=== PATIENT | male | born 1980 | race Caucasian/White ===

== ENCOUNTER 2018-09-06 19:18 | Inpatient (IN) | payer OTHER ==
[~2018-09-06] VITALS: Ht 180.3 cm; Wt 103.1 kg
[2018-09-06 20:27] LABS: BASO % 0.5 % (0.0-1.0); EOS # 0.1 10^3/uL (0.0-0.50); EOS % 1.2 % (0.0-3.0); HEMATOCRIT 40.3 % (42.0-52.0); HEMOGLOBIN 13.5 g/dl (13.5-17.5); LYMPH # 1.6 10^3/uL (1.5-4.5); LYMPH % 20.1 % (24.0-44.0); MEAN CORPUSCULAR HEMOGLOBIN 28.7 pg (27.0-33.0); MEAN CORPUSCULAR HGB CONC 33.5 g/dl (32.0-36.5); MEAN CORPUSCULAR VOLUME 85.7 fl (80.0-96.0); MONO # 0.7 10^3/uL (0.0-0.8); MONO % 8.8 % (0.0-5.0); NEUTROPHILS # 5.4 10^3/uL (1.8-7.7); PLATELET COUNT, AUTOMATED 204 10^3/uL (150-450); WHITE BLOOD COUNT 7.8 10^3/uL (4.0-10.0)
[2018-09-06] MEDS ORDERED: MORPHINE 4 MG/ML 1ML VIAL/SYRINGE (J2270) IV ONE (20:30)
[2018-09-06] MEDS ORDERED: ONDANSETRON 4MG/2ML VIAL (J2405) IV ONE (20:30)
[2018-09-06 20:38] LABS: INR 1.85; PROTHROMBIN TIME 21.7 SECONDS (12.1-14.4)
[2018-09-06 20:39] LABS: ALBUMIN 3.4 GM/DL (3.2-5.2); ALT/SGPT 53 U/L (12-78); BILIRUBIN,DIRECT 0.1 MG/DL (0.0-0.2); BILIRUBIN,TOTAL 0.6 MG/DL (0.2-1.0); BLOOD UREA NITROGEN 17 MG/DL (7-18); CALCIUM LEVEL 8.4 MG/DL (8.5-10.1); CARBON DIOXIDE LEVEL 27 MEQ/L (21-32); CHLORIDE LEVEL 107 MEQ/L (98-107); CPK CREATINE PHOSPHOKINASE 202 U/L (39-308); CREATININE FOR GFR 0.86 MG/DL (0.70-1.30); GLOMERULAR FILTRATION RATE > 60.0 (>60); GLUCOSE, FASTING 94 MG/DL (70-100); LIPASE 126 U/L (73-393); MB/CK RELATIVE INDEX 0.79 (< OR =4); PARTIAL THROMBOPLASTIN TIME 35.7 SECONDS (25.4-37.6); POTASSIUM SERUM 4.4 MEQ/L (3.5-5.1); SODIUM LEVEL 140 MEQ/L (136-145); TOTAL PROTEIN 6.9 GM/DL (6.4-8.2); TROPONIN I < 0.02 NG/ML (< 0.10)
[2018-09-06] MEDS ORDERED: ISOVUE-370 76% 100ML VIAL (Q9967) As Ordered ONE (21:18)
--- NOTE | 2018-09-06 22:27 | REPVR ---
EXAM: US Duplex Left Upper Extremity Veins, Limited EXAM DATE/TIME: 09/06/2018 9:40 PM CLINICAL HISTORY: 38 years old, male; Pain; Arn, upper; Left; Additional info: RO dvt TECHNIQUE: Imaging protocol: Real-time Duplex ultrasound of the Left Upper Extremity with 2-D sauceda scale, color Doppler flow and spectral waveform analysis. Limited exam focused on the left upper extremity veins. COMPARISON: No relevant prior studies available. FINDINGS: Left deep veins: Internal jugular, subclavian, axillary and brachial veins patent without thrombus. Normal compressibility, augmentation response and/or Doppler waveforms. Left superficial veins: Visualized cephalic and basilic veins patent without thrombus. Soft tissues: Unremarkable. IMPRESSION: No sonographic evidence of deep vein thrombosis. Electronically signed by: Frank Hurd On 09/06/2018 22:27:02 PM
[2018-09-06] MEDS ORDERED: ENOXAPARIN 100MG/1ML SYRINGE (J1650) SC ONE (22:30)
--- NOTE | 2018-09-06 22:34 | REPVR ---
EXAM: CTA Left Upper Extremity With Contrast EXAM DATE/TIME: 09/06/2018 9:58 PM CLINICAL HISTORY: 38 years old, male; Condition or disease; Other: HX of clots; Prior surgery; Additional info: Left arm, assess stent integrity - HX of clot TECHNIQUE: Imaging protocol: Axial CTA of the Left upper extremity with intravenous contrast material, including non-contrast images if performed. Coronal and sagittal reformatted images were created and reviewed. 3D rendering: MIP reconstructed images were created and reviewed. Radiation optimization: All CT scans at this facility use at least one of these dose optimization techniques: automated exposure control; mA and/or kV adjustment per patient size (includes targeted exams where dose is matched to clinical indication); or iterative reconstruction. Contrast material: ISOVUE 370; Contrast volume: 100 ml; Contrast route: IV; COMPARISON: No relevant prior studies available. FINDINGS: Left subclavian artery: No acute findings. No occlusion or significant stenosis. Left axillary artery: No acute findings. No occlusion or significant stenosis. Left brachial artery: No acute findings. No occlusion or significant stenosis. Left Radial artery: Grossly patent. No definite occlusion or significant stenosis. Left ulnar artery: Grossly patent. No definite occlusion or significant stenosis. Upper Extremity Veins: Suboptimal evaluation of the left subclavian vein stent due to the phase of contrast-enhancement. Subcutaneous varices about the shoulder and arm. Bones/joints: No acute fracture. No dislocation. Soft tissues: Grossly unremarkable. No fluid collection or soft tissue mass. IMPRESSION: 1. Patent left upper extremity arterial system. 2. Suboptimal evaluation of the left subclavian vein stent due to the phase of contrast-enhancement. 3. Additional findings, as above. Electronically signed by: Frank Hurd On 09/06/2018 22:34:25 PM
[2018-09-06] MEDS ORDERED: WARF4TAB51 PO (22:45)
[2018-09-06] MEDS ORDERED: WARF-22 PO (22:45)
--- NOTE | 2018-09-06 23:29 | ECGEPIP ---
Stationary ECG Study [facility] - ED Test Date: 2018-09-06 Pat Name: BENJI KOO Department: Room: - Gender: M [employer]: : 1980 Requested By: Pako Howard Order Number: [id number] Reading MD: Pako Mejia Measurements Intervals Freeman Rate: 52 P: 7 NV: 179 QRS: -63 QRSD: 146 T: -8 QT: 423 QTc: 394 Interpretive Statements SINUS BRADYCARDIA RIGHT BUNDLE BRANCH BLOCK LEFT ANTERIOR FASCICULAR BLOCK NO PRIORS FOR COMPARISON Electronically Signed On 09-06-2018 23:28:58 EDT by Pako Mejia
[2018-09-06] MEDS ORDERED: MOM 30ML SUSPENSION UDC PO PRN (23:30)
[2018-09-06] MEDS ORDERED: ACETAMINOPHEN TAB 650MG DOSE (2X325MG) PO PRN (23:30)
[2018-09-07 00:40] VITALS: BP 139/92
[2018-09-07] MEDS: traMADol 50 MG TAB PO PRN ×2 (00:56→18:46)
[2018-09-07 05:41] VITALS: BP 109/70
--- NOTE | 2018-09-07 06:22 | HPEPDOC ---
General Date of Admission Sep 06, 2018 at 22:39 Attending Physician: MIKE GILBERT MD Chief Complaint The patient is a 38-year-old male admitted with a reason for visit of Left Arm Pain. History of Present Illness 38-year-old male from local correctional facility is brought in for left arm and chest pain that radiates to his neck and back. He states it started last night around 11 PM while watching TV. He states this feels similar to his previous episodes of when he had clots in his left arm that initially started in 2010 after he sustained an injury from a fall that led to him having thoracic outlet syndrome after a rib was surgically removed. He states he has had a stent in that arm since 2012 that has clotted up multiple times. He admits to a history of multiple blood clots in the lower legs. Denies any other symptoms such as shortness of breath, fever, chills, dizziness. Of note, his Coumadin has been uptitrated over the past years, currently at 12 MG daily, which he does say he complies with, however his INR on admission is 1.85. On imaging, Doppler was negative for any clot, however there is questionable thrombus with suboptimal visualization of the stent on CTA. The ER spoke with vascular surgeon Dr. Gil, who would like the patient admitted for assessment in the morning. He is otherwise stable, and has been started on full dose Lovenox as per vascular surgery. Home Medications Scheduled Warfarin Sodium (Warfarin Sodium) 2 Mg Tablet, 2 MG PO QPM, (Reported) TAKES WITH 10MG FOR 12MG TOTAL, TAKES AT DINNERTIME Warfarin Sodium (Warfarin Sodium) 10 Mg Tablet, 10 MG PO QPM, (Reported) TAKES WITH 2MG FOR 12MG TOTAL, TAKES AT DINNERTIME Allergies Coded Allergies: No Known Allergies (Unverified , 09/06/18) Past Medical History Medical History Thoracic outlet syndrome Recurrent VTE, S/P left subclavian stent on chronic anticoagulation ?Hx of cardiac pauses s/p PPM Surgical History Left rib removal s/p fall ' Left subclavian stent ' ?PPM placed Family History Patient doesn't recall Social History Denies any illicit substances. Experimented with tobacco, however does not currently smoke or drink. Is incarcerated. Review of Systems Other systems Constitutional: Denies fever, chills, wt loss Skin: Denies any new rashes or lesions Pulmonary: Denies dyspnea, cough, wheezing Cardiac: Denies chest pain, palpitations, edema, lightheadedness GI: Denies nausea, vomiting, abdominal pain Endocrine: Denies heat or cold intolerance MSK: Admits to left arm, chest, neck pain associated with left arm swelling. Denies other aches/pains Neurologic: Denies weakness or numbness/tingling Physical Examination Other physical findings General exam: Alert and cooperative, A&O 3, NAD Eye exam: PERRLA, EOMI ENT: Atraumatic, normocephalic, mucus membranes moist Neck: Supple, no JVD Cardiac: RRR, normal S1 & S2, no murmurs Respiratory: CTAB, good air exchange, no wheezing, rhonchi, or rales Abdomen: soft, nontender, nondistended Extremity: Left arm visibly swollen compared to right, ROM & strength intact fully, no LE edema or calf tenderness. Warm with good capillary refill Skin: Left upper arm warm and tender to palpation at site of swelling. Otherwise: pink, warm, dry, no visible rash or lesions Neuro: no focal deficit Vital Signs Vital Signs Date Time Temp Pulse Resp B/P (MAP) Pulse Ox O2 Delivery O2 Flow Rate FiO2 09/07/18 05:41 97.2 66 16 109/70 (83) 97 09/06/18 20:34 2.0 09/06/18 19:37 Room Air Laboratory Data Labs 24H Laboratory Tests 2 09/06/18 19:44: Immature Granulocyte % (Auto) 0.4, White Blood Count 7.8, Red Blood Count 4.70, Hemoglobin 13.5, Hematocrit 40.3L, Mean Corpuscular Volume 85.7, Mean Corpuscular Hemoglobin 28.7, Mean Corpuscular Hemoglobin Concent 33.5, Red Cell Distribution Width 13.3, Platelet Count 204, Neutrophils (%) (Auto) 69.0H, Lymphocytes (%) (Auto) 20.1L, Monocytes (%) (Auto) 8.8H, Eosinophils (%) (Auto) 1.2, Basophils (%) (Auto) 0.5, Neutrophils # (Auto) 5.4, Lymphocytes # (Auto) 1.6, Monocytes # (Auto) 0.7, Eosinophils # (Auto) 0.1, Basophils # (Auto) 0.0, Nucleated Red Blood Cells % (auto) 0.0, Prothrombin Time 21.7H, Prothromb Time International Ratio 1.85, Activated Partial Thromboplast Time 35.7, Anion Gap 6L, Glomerular Filtration Rate > 60.0, Calcium Level 8.4L, Aspartate Amino Transf (AST/SGOT) 25, Alanine Aminotransferase (ALT/SGPT) 53, Alkaline Phosphatase 82, Total Bilirubin 0.6, Direct Bilirubin 0.1, Total Creatine Kinase 202, Creatine Kinase MB 2.0, Creatine Kinase MB Relative Index 0.79, Troponin I < 0.02, Total Protein 6.9, Albumin 3.4, Albumin/Globulin Ratio 0.97L, Lipase 126, Thyroid Stimulating Hormone (TSH) 0.860, Free Thyroxine 1.20 CBC/BMP Laboratory Tests 09/06/18 19:44 Red Blood Count 4.70, Mean Corpuscular Volume 85.7, Mean Corpuscular Hemoglobin 28.7, Mean Corpuscular Hemoglobin Concent 33.5, Red Cell Distribution Width 13.3, Neutrophils (%) (Auto) 69.0 H, Lymphocytes (%) (Auto) 20.1 L, Monocytes (%) (Auto) 8.8 H, Eosinophils (%) (Auto) 1.2, Basophils (%) (Auto) 0.5, Neutrophils # (Auto) 5.4, Lymphocytes # (Auto) 1.6, Monocytes # (Auto) 0.7, Eosi nophils # (Auto) 0.1, Basophils # (Auto) 0.0 Assessment/Plan 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 Left arm visibly swollen and tender compared to right Pt started on therapeutic Lovenox in lieu of home dose Warfarin per [facility] Vascular surgeon Dr. Gil consulted and will assess patient in a.m., possibly take to OR History of recurrent thrombus formation Exact source is unclear. He overall is a poor historian and does not follow with PCP Despite high dose Coumadin of 12mg, INR suboptimal at 1.85 on admission. May require readjustment of AC once medically improved Does not endorse any constitutional symptoms, malignancy less likely Unsure of family hx, may have genetic component May benefit from a hypercoagulable workup if not already done Atypical Chest Pain likely 2/2 possible occlusion/thrombus of stent as aforementioned cardiac markers negative, EKG unremarkable will trend additional cardiac marker set. Unlikely to be cardiogenic Hx of cardiac pauses S/P PPM that functions on prn basis per pt, although no pacer spikes on EKG or PM visible on CXR hemodynamically stable will require further investigation DVT ppx: therapeutic lovenox DISPO: Will admit to hospitalist service to be seen by [facility] surgery in a.m. Possible OR. Plan / VTE VTE Prophylaxis Ordered?: Yes GME ATTESTATION GME ATTESTATION My faculty preceptor for this patient encounter was physically present during the encounter and was fully available. All aspects of the patient interview, examination, medical decision making process, and medical care plan development were reviewed and approved by the faculty preceptor. The faculty preceptor is aware and concurs with the plan as stated in the body of this note and will a ttest to such by his/her cosignature. ATTENDING NOTE I have independently examined this patient and reviewed the H&P. I have discussed in detail with the resident the findings and treatment plan as documented in the resident's note and I agree to that. 38 y/o M with h/o subclavian steal syndrome s/p stent placement, h/o left upper extremity DVT c/o left arm pain and swelling; found to have questionable thrombus with suboptimal visualization of the stent on CTA. Impression- left arm pain and swelling secondary to suspected thrombus. Plan will continue PO coumadin, sq lovenox bridging, will f/u INR pain management, will f/u with vascular surgeon JUNO Hong DO Sep 07, 2018 06:22 MIKE GILBERT MD Sep 08, 2018 00:07
[2018-09-07 06:53] LABS: HEMATOCRIT 41.6 % (42.0-52.0); HEMOGLOBIN 13.8 g/dl (13.5-17.5); MEAN CORPUSCULAR HEMOGLOBIN 28.4 pg (27.0-33.0); MEAN CORPUSCULAR HGB CONC 33.2 g/dl (32.0-36.5); MEAN CORPUSCULAR VOLUME 85.6 fl (80.0-96.0); PLATELET COUNT, AUTOMATED 183 10^3/uL (150-450); RED BLOOD COUNT 4.86 10^6/uL (4.30-6.10); WHITE BLOOD COUNT 7.3 10^3/uL (4.0-10.0)
[2018-09-07 07:16] LABS: BLOOD UREA NITROGEN 15 MG/DL (7-18); CALCIUM LEVEL 8.2 MG/DL (8.5-10.1); CARBON DIOXIDE LEVEL 26 MEQ/L (21-32); CHLORIDE LEVEL 108 MEQ/L (98-107); CPK CREATINE PHOSPHOKINASE 139 U/L (39-308); CREATININE FOR GFR 0.88 MG/DL (0.70-1.30); GLOMERULAR FILTRATION RATE > 60.0 (>60); GLUCOSE, FASTING 87 MG/DL (70-100); MB/CK RELATIVE INDEX 0.86 (< OR =4); POTASSIUM SERUM 3.7 MEQ/L (3.5-5.1); SODIUM LEVEL 139 MEQ/L (136-145); TROPONIN I < 0.02 NG/ML (< 0.10)
[2018-09-07] MEDS: ENOXAPARIN 100MG/1ML SYRINGE (J1650) SC SCH ×2 (08:50→20:56)
--- NOTE | 2018-09-07 09:23 | REP ---
Portable chest x-ray: Single view: History: Chest pain. No comparison study. Findings: EKG monitoring electrodes overlie the chest. There is a disc shaped metallic opacity superimposed on the heart which could be a aortic valve replacement. There is a vascular stent in the region of the subclavian artery or vein on the left. The lungs are well inflated and clear. Pleural angles are sharp. Heart size is normal. Impression: Metallic density superimposed on the heart may be a valve replacement or other intracardiac device. Vascular stent in the left subclavian region. Otherwise no acute disease. Electronically Signed by Spencer Oswald MD 09/07/2018 09:25 A
--- NOTE | 2018-09-07 10:46 | CR.PDOC ---
General Date of Consultation: Sep 07, 2018 Consultation CONSULTATION REPORT FOR: Dr Carr REASON FOR CONSULTATION: LUE edema Vascular Surgery: Dr. Gil HPI: 38-[facility] brought to ED for left arm and chest pain that radiating to his neck and back. He states it started 2 days ago. He reported this felt similar to his previous episodes of when he had clots in his left arm. He reports he initially had UE clots in 2010 after he sustained an injury from a fall that led to him having thoracic outlet syndrome after a rib was surgically removed. He states he has had a stent in LUE since 2012, reports it has clotted up multiple times. He reports history of multiple blood clots in the LEs. Of note, Pt states his Coumadin has been uptitrated over the past years, currently at 12 MG daily. States his INR 8 days ago was 1.2, on admission was 1.85. On imaging, Doppler LUE was negative for any clot. CTA LUE with questionable thrombus with suboptimal visualization of the stent. Dr. Gil, vascular surgery is consulted for further evaluation. Full dose Lovenox initiated. Denies any fevers, chills, weakness, fatigue, Headache, Chest Pain, Shortness of breath, cough, palpitations, abdominal pain, N/V/D or changes in bowel or bladder habits. Medical History Thoracic outlet syndrome Recurrent VTE, S/P left subclavian stent on chronic Coumadin anticoagulation Hx of cardiac pauses s/p PPM Surgical History Left rib removal s/p fall ' Left subclavian stent '13 ?PPM placed SOCHX: Resides in: [facility]. From [facility] Marital Status: single Kids: 3 Tobacco use: denies ETOH: denies Illicit Drugs: Denies FAMHX: Mother: Alive, well Father: Alive, well Siblings: 1 brother Alive, well Children: 3 Alive, well Denies h/o clotting disorders ROS: As noted in HPI, otherwise 11pt ROS of systems reviewed and unremarkable. PE: GEN: 38yoM, appears stated age. No acute distress. Alert and oriented x 3. HEENT: Normocephalic, atraumatic. Sclera are nonicteric. Conjunctiva without injection. No facial asymmetry. Moist mucous membranes. CHEST: Regular rate and rhythm, +S1, +S2 LUNGS: Clear to auscultation bilaterally. No wheezes, rales, or rhonchi. Breathing appears symmetric and easy. ABD: Round, soft, non-tender, non-distended. +Bowel sounds throughout. No rebound or guarding. EXT: Pulses 2+ bilaterally ulnar and radial. Good cap refill. Lt hand warm. LUE with edema and TTP in upper arm. No lower extremity edema or TTP appreciated. SKIN: [place], dry, warm. No rashes. NEURO: Alert and oriented x 3. No focal deficits appreciated. CXR Metallic density superimposed on the heart may be a valve replacement or other intracardiac device. Vascular stent in the left subclavian region. Otherwise no acute disease. Electronically Signed by Spencer Oswald MD 09/07/2018 09:25 A EKG SINUS BRADYCARDIA RIGHT BUNDLE BRANCH BLOCK LEFT ANTERIOR FASCICULAR BLOCK NO PRIORS FOR COMPARISON Electronically Signed On 09-06-2018 23:28:58 EDT by Pako TRUONG U/S Left deep veins: Internal jugular, subclavian, axillary and brachial veins patent without thrombus. Normal compressibility, augmentation response and/or Doppler waveforms. Left superficial veins: Visualized cephalic and basilic veins patent without thrombus. Soft tissues: Unremarkable. IMPRESSION: No sonographic evidence of deep vein thrombosis. Electronically signed by: Frank Hurd On 09/06/2018 22:27:02 PM LUE CTA Upper Extremity Veins: Suboptimal evaluation of the left subclavian vein stent due to the phase of contrast-enhancement. Subcutaneous varices about the shoulder and arm. Bones/joints: No acute fracture. No dislocation. Soft tissues: Grossly unremarkable. No fluid collection or soft tissue mass. IMPRESSION: 1. Patent left upper extremity arterial system. 2. Suboptimal evaluation of the left subclavian vein stent due to the phase of contrast-enhancement. 3. Additional findings, as above. Electronically signed by: Frank Hurd On 09/06/2018 22:34:25 PM A&P: 38-year-old male from local correctional facility is brought to ED for left arm and chest pain that radiating to his neck and back. He states it started 2 days ago. He reported this felt similar to his previous episodes of when he had clots in his left arm. He reports he initially had UE clots in 2010 after he sustained an injury from a fall that led to him having thoracic outlet syndrome after a rib was surgically removed. He states he has had a stent in LUE since 2012, reports it has clotted up multiple times. He reports history of multiple blood clots in the LEs. Of note, Pt states his Coumadin has been uptitrated over the past years, curre ntly at 12 MG daily, which he does say he complies with. States his INR 8 days ago was 1.2, on admission was 1.85. On imaging, Doppler LUE was negative for any clot. CTA LUE with questionable thrombus with suboptimal visualization of the stent. Dr. Gil, vascular surgery is consulted for further evaluation. Full dose Lovenox initiated. 1. LUE pain/edema. Concern for possible Left subclavian stent thrombosis. CTA on admission with suboptimal evaluation of the left subclavian stent. Pt reports h/o recurrent thrombus formation. Patient states he has had multiple clots in his legs and arms since his initial injury in 2010. Pt started on therapeutic Lovenox 100mg SQ Q12hr. INR 1.85 on admission despite Coumadin 12 mg daily. Pt is NPO. Plan is for LUE venogram as per Dr Gil. 2. History of recurrent thrombus formation Despite Coumadin dose of 12mg, INR suboptimal at 1.85 on admission. May require re adjustment of AC once medically improved. Pt denies family hx of clotting d/o. Will request hypercoagulable w/u, unclear if already completed previously. 3. Atypical Chest Pain EKG with no acute changes. Serial CIP/Trop neg. 4. Hx of cardiac pauses H/O PPM as per pt. CXR indicates metallic density superimposed on the heart may be a valve replacement or other intracardiac device. DVT prophylaxis. Pt is on Lovenox. Vital Signs/I&O Vital Signs Date Time Temp Pulse Resp B/P (MAP) Pulse Ox O2 Delivery O2 Flow Rate FiO2 09/07/18 05:41 97.2 66 16 109/70 (83) 97 09/06/18 20:34 2.0 09/06/18 19:37 Room Air Laboratory Data Labs 24H Laboratory Tests 2 09/06/18 19:44: Immature Granulocyte % (Auto) 0.4, White Blood Count 7.8, Red Blood Count 4.70, Hemoglobin 13.5, Hematocrit 40.3L, Mean Corpuscular Volume 85.7, Mean Corpuscular Hemoglobin 28.7, Mean Corpuscular Hemoglobin Concent 33.5, Red Cell Distribution Width 13.3, Platelet Count 204, Neutrophils (%) (Auto) 69.0H, Lymphocytes (%) (Auto) 20.1L, Monocytes (%) (Auto) 8.8H, Eosinophils (%) (Auto) 1.2, Basophils (%) (Auto) 0.5, Neutrophils # (Auto) 5.4, Lymphocytes # (Auto) 1.6, Monocytes # (Auto) 0.7, Eosinophils # (Auto) 0.1, Basophils # (Auto) 0.0, Nucleated Red Blood Cells % (auto) 0.0, Prothrombin Time 21.7H, Prothromb Time International Ratio 1.85, Activated Partial Thromboplast Time 35.7, Anion Gap 6L, Glomerular Filtration Rate > 60.0, Calcium Level 8.4L, Aspartate Amino Transf (AST/SGOT) 25, Alanine Aminotransferase (ALT/SGPT) 53, Alkaline Phosphatase 82, Total Bilirubin 0.6, Direct Bilirubin 0.1, Total Creatine Kinase 202, Creatine Kinase MB 2.0, Creatine Kinase MB Relative Index 0.79, Troponin I < 0.02, Total Protein 6.9, Albumin 3.4, Albumin/Globulin Ratio 0.97L, Lipase 126, Thyroid Stimulating Hormone (TSH) 0.860, Free Thyroxine 1.20 09/07/18 06:25: Nucleated Red Blood Cells % (auto) 0.0, Anion Gap 5L, Glomerular Filtration Rate > 60.0, Calcium Level 8.2L, Total Creatine Kinase 139, Creatine Kinase MB 1.0, Creatine Kinase MB Relative Index 0.86, Troponin I < 0.02, Blood Urea Nitrogen 15, Creatinine 0.88, Sodium Level 139, Potassium Level 3.7, Chloride Level 108H, Carbon Dioxide Level 26 CBC/BMP Laboratory Tests 09/06/18 19:44 Red Blood Count 4.70, Mean Corpuscular Volume 85.7, Mean Corpuscular Hemoglobin 28.7, Mean Corpuscular Hemoglobin Concent 33.5, Red Cell Distribution Width 13.3, Neutrophils (%) (Auto) 69.0 H, Lymphocytes (%) (Auto) 20.1 L, Monocytes (%) (Auto) 8.8 H, Eosinophils (%) (Auto) 1.2, Basophils (%) (Auto) 0.5, Neutrophils # (Auto) 5.4, Lymphocytes # (Auto) 1.6, Monocytes # (Auto) 0.7, Eosinophils # (Auto) 0.1, Basophils # (Auto) 0.0 09/07/18 06:25 Red Blood Count 4.86, Mean Corpuscular Volume 85.6, Mean Corpuscular Hemoglobin 28.4, Mean Corpuscular Hemoglobin Concent 33.2, Red Cell Distribution Width 13.2, Calcium Level 8.2 L, Total Creatine Kinase 139 Allergies Coded Allergies: No Known Allergies (Unverified , 09/06/18) Home Medications Scheduled Warfarin Sodium (Warfarin Sodium) 2 Mg Tablet, 2 MG PO QPM, (Reported) TAKES WITH 10MG FOR 12MG TOTAL, TAKES AT DINNERTIME Warfarin Sodium (Warfarin Sodium) 10 Mg Tablet, 10 MG PO QPM, (Reported) TAKES WITH 2MG FOR 12MG TOTAL, TAKES AT DINNERTIME Esther Ojeda Sep 07, 2018 10:46
[2018-09-07] MEDS: KETOROLAC 30 MG/ML VIAL (J1885) IV PRN ×2 (10:50→20:55)
--- NOTE | 2018-09-07 13:56 | IPNPDOC ---
Text Note Date of Service The patient was seen on 09/07/18. NOTE OBJECTIVE: Complains of left chest wall swelling and left upper extremity pain and swelling. No fever or chills, no SOB or cough. patient has visits to multiple hospitals including [facility], [facility] hospitals in [place] . Will request records from [facility] where he had the stent originally put in and also a ? pacemaker put it. SUBJECTIVE VITALS: As below. General exam: Alert and cooperative, A&O 3, NAD Eye exam: NADIA URENA ENT: Atraumatic, normocephalic, mucus membranes moist, anicteric eyes. Neck: Supple, no JVD Cardiac: RRR, normal S1 & S2, no murmurs, rub or gallop Respiratory: CTAB, good air exchange, no wheezing, ronchi, or rales Abdomen: soft, nontender, nondistended Extremity: Left arm slightly swollen compared to right, ROM & strength intact fully, no Lower Extremity edema or calf tenderness. Warm with good capillary refill Neuro: no focal deficit Labs and Radiology: reviewed. ASSESSMENT and PLAN: 38-year-old male from local correctional facility is brought to ED for left arm and chest pain that was radiating to his neck and back. He states it started 2 days ago. He reported this felt similar to his previous episodes of when he had clots in his left arm. He reports he initially had UE clots in 2010 after he sustained an injury from a fall that led him to be having thoracic outlet syndrome for which a rib was surgically removed in 2012. HE also had a subclaviun vein stent placed in 2012 and a pacemaker placed in 2015. He states that the stent has clotted up multiple times. A report from [facility] from Mar 2018 showed that the subclavian vein stent was clotted .He reports history of multiple blood clots in the lower legs. He was admitted for possible clotting of left subclavian vein stent. Possible Left subclavian vein stent thrombosis. CTA on admission concerning for thrombus occlusion of stent. Vascular surgery to evaluate possibl e LUE angiogram today. 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 Hx of cardiac pauses H/O PPM as per pt. CXR indicates metallic density superimposed on the heart may be a valve replacement or other intracardiac device. will request records from [facility] where he got it done. A-FIB/CHADSVASC A-FIB History Current/History of A-Fib/PAF?: Yes Current Oral Anticoagulant The: Yes VS,Fishbone, I+O VS, Fishbone, I+O Laboratory Tests 09/06/18 19:44 Red Blood Count 4.70, Mean Corpuscular Volume 85.7, Mean Corpuscular Hemoglobin 28.7, Mean Corpuscular Hemoglobin Concent 33.5, Red Cell Distribution Width 13.3, Neutrophils (%) (Auto) 69.0 H, Lymphocytes (%) (Auto) 20.1 L, Monocytes (%) (Auto) 8.8 H, Eosinophils (%) (Auto) 1.2, Basophils (%) (Auto) 0.5, Neutrophils # (Auto) 5.4, Lymphocytes # (Auto) 1.6, Monocytes # (Auto) 0.7, Eosinophils # (Auto) 0.1, Basophils # (Auto) 0.0 09/07/18 06:25 Red Blood Count 4.86, Mean Corpuscular Volume 85.6, Mean Corpuscular Hemoglobin 28.4, Mean Corpuscular Hemoglobin Concent 33.2, Red Cell Distribution Width 13.2, Calcium Level 8.2 L, Total Creatine Kinase 139 Vital Signs Date Time Temp Pulse Resp B/P (MAP) Pulse Ox O2 Delivery O2 Flow Rate FiO2 09/07/18 05:41 97.2 66 16 109/70 (83) 97 09/06/18 20:34 2.0 09/06/18 19:37 Room Air KATERYNA LUCIANO MD Sep 07, 2018 11:26
[2018-09-07 14:00] VITALS: BP 123/77
[2018-09-07 14:14] LABS: ERYTHROCYTE SEDIMENTATION RATE 11 mm/hr (0-15)
[2018-09-07 15:25] LABS: C REACTIVE PROTEIN QUANTITATIV 0.77 MG/DL (0.00-0.30)
[2018-09-07] MEDS ORDERED: BUPIVACAINE HCL 0.5% 10 ML VIAL As Ordered ONE (15:47)
[2018-09-07] MEDS ORDERED: ISOVUE-300 61% 100ML VIAL (Q9967) As Ordered ONE (15:48)
[2018-09-07] MEDS ORDERED: LIDOCAINE 2% MDV 20 ML VIAL As Ordered ONE (15:48)
[2018-09-07 20:00] VITALS: BP 144/74
[2018-09-08 04:00] VITALS: BP 130/83
[2018-09-08 06:58] LABS: HEMATOCRIT 41.3 % (42.0-52.0); HEMOGLOBIN 13.9 g/dl (13.5-17.5); MEAN CORPUSCULAR HEMOGLOBIN 28.7 pg (27.0-33.0); MEAN CORPUSCULAR HGB CONC 33.7 g/dl (32.0-36.5); MEAN CORPUSCULAR VOLUME 85.2 fl (80.0-96.0); PLATELET COUNT, AUTOMATED 197 10^3/uL (150-450); RED BLOOD COUNT 4.85 10^6/uL (4.30-6.10); WHITE BLOOD COUNT 6.8 10^3/uL (4.0-10.0)
[2018-09-08 07:24] LABS: BLOOD UREA NITROGEN 23 MG/DL (7-18); CALCIUM LEVEL 8.3 MG/DL (8.5-10.1); CARBON DIOXIDE LEVEL 26 MEQ/L (21-32); CHLORIDE LEVEL 109 MEQ/L (98-107); GLOMERULAR FILTRATION RATE > 60.0 (>60); GLUCOSE, FASTING 91 MG/DL (70-100); SODIUM LEVEL 140 MEQ/L (136-145)
[2018-09-08] MEDS: traMADol 50 MG TAB PO PRN (08:37)
[2018-09-08] MEDS: ENOXAPARIN 100MG/1ML SYRINGE (J1650) SC SCH ×2 (08:37→20:12)
--- NOTE | 2018-09-08 10:02 | IPNPDOC ---
Date Seen The patient was seen on 09/08/18. Progress Note HPI: 38-year-old male from local correctional facility is brought to ED for left arm and chest pain that radiating to his neck and back. He states it started 2 days ago. He reported this felt similar to his previous episodes of when he had clots in his left arm. He reports he initially had UE clots in 2010 after he sustained an injury from a fall that led to him having thoracic outlet synd sebastián after a rib was surgically removed. He states he has had a stent in LUE since 2012, reports it has clotted up multiple times. He reports history of multiple blood clots in the LEs. Of note, Pt states his Coumadin has been uptitrated over the past years, currently at 12 MG daily. States his INR 8 days ago was 1.2, on admission was 1.85. On imaging, Doppler LUE was negative for any clot. CTA LUE with questionable thrombus with suboptimal visualization of the stent. Dr. Gil, vascular surgery is consulted for further evaluation. Full dose Lovenox initiated on admission. Denies any fevers, chills, weakness, fatigue, Headache, Chest Pain, Shortness of breath, cough, palpitations, abdominal pain, N/V/D or changes in bowel or bladder habits. Medical History Thoracic outlet syndrome Recurrent VTE, S/P left subclavian stent on chronic Coumadin anticoagulation Hx of cardiac pauses s/p PPM Surgical History Left rib removal s/p fall ' Left subclavian stent '13 ?PPM placed PE: GEN: 38yoM, appears stated age. No acute distress. Alert and oriented x 3. HEENT: Normocephalic, atraumatic. Sclera are nonicteric. Conjunctiva without injection. No facial asymmetry. Moist mucous membranes. CHEST: Regular rate and rhythm, +S1, +S2 LUNGS: Clear to auscultation bilaterally. No wheezes, rales, or rhonchi. Breathing appears symmetric and easy. ABD: Round, soft, non-tender, non-distended. +Bowel sounds throughout. No rebound or guarding. EXT: Pulses 2+ bilaterally ulnar and radial. Good cap refill. Lt hand warm. LUE with edema and TTP in upper arm. No lower extremity edema or TTP appreciated. SKIN: [place], dry, warm. No rashes. NEURO: Alert and oriented x 3. No focal deficits appreciated. CXR Metallic density superimposed on the heart may be a valve replacement or other intracardiac device. Vascular stent in the left subclavian region. Otherwise no acute disease. Electronically Signed by Spencer Oswald MD 09/07/2018 09:25 A EKG SINUS BRADYCARDIA RIGHT BUNDLE BRANCH BLOCK LEFT ANTERIOR FASCICULAR BLOCK NO PRIORS FOR COMPARISON Electronically Signed On 09-06-2018 23:28:58 EDT by Pako TRUONG U/S Left deep veins: Internal jugular, subclavian, axillary and brachial veins patent without thrombus. Normal compressibility, augmentation response and/or Doppler waveforms. Left superficial veins: Visualized cephalic and basilic veins patent without thrombus. Soft tissues: Unremarkable. IMPRESSION: No sonographic evidence of deep vein thrombosis. Electronically signed by: Frank Hurd On 09/06/2018 22:27:02 PM LUE CTA Upper Extremity Veins: Suboptimal evaluation of the left subclavian vein stent due to the phase of contrast-enhancement. Subcutaneous varices about the shoulder and arm. Bones/joints: No acute fracture. No dislocation. Soft tissues: Grossly unremarkable. No fluid collection or soft tissue mass. IMPRESSION: 1. Patent left upper extremity arterial system. 2. Suboptimal evaluation of the left subclavian vein stent due to the phase of contrast-enhancement. 3. Additional findings, as above. Electronically signed by: Frank Hurd On 09/06/2018 22:34:25 PM A&P: 38-year-old male from local correctional facility is brought to ED for left arm and chest pain that radiating to his neck and back. He states it started 2 days ago. He reported this felt similar to his previous episodes of when he had clots in his left arm. He reports he initially had UE clots in 2010 after he sustained an injury from a fall that led to him having thoracic outlet syndrome after a rib was surgically removed. He states he has had a stent in LUE since 2012, reports it has clotted up multiple times. He reports history of multiple blood clots in the LEs. Of note, Pt states his Coumadin has been uptitrated over the past years, currently at 12 MG daily, which he does say he complies with. States his INR 8 days ago was 1.2, on admission was 1.85. On imaging, Doppler LUE was negative for any clot. CTA LUE with questionable thrombus with suboptimal visualization of the stent. Dr. Gil, vascular surgery is consulted for further evaluation. Full dose Lovenox initiated. 1. LUE pain/edema. Pt reports h/o recurrent thrombus formation. Patient states he has had multiple clots in his legs and arms since his initial injury in 2010. Pt started on therapeutic Lovenox 100mg SQ Q12hr. INR 1.85 on admission despite Coumadin 12 mg daily. Venogram completed 09/07/[address] Gil indicated chronically occluded subclavian vein stent, patient noted to have collateral flow, essentially unchanged from report from study of 2018. Recommendation for symptomatic treatment including warm compresses, elevation, Motrin as needed. Compression garment is recommended for the left upper extremity. Recommend restart Coumadin with goal INR of 2.5-3.5, continue Lovenox until INR therapeutic. Recommendations relayed to Dr. Naranjo. 2. History of recurrent thrombus formation Despite Coumadin dose of 12mg, INR suboptimal at 1.85 on admission. Pt denies family hx of clotting d/o. Requested hypercoagulable w/u, unclear if already completed previously. Recommendation as per Dr Gil to restart Coumadin with goal INR 2.5-3.5. Continue Lovenox until INR therapeutic. 3. Atypical Chest Pain EKG with no acute changes. Serial CIP/Trop neg. 4. Hx of cardiac pauses H/O PPM as per pt. CXR indicates metallic density superimposed on the heart may be a valve replacement or other intracardiac device. DVT prophylaxis. Pt is on Lovenox. A-FIB/CHADSVASC A-FIB History Current/History of A-Fib/PAF?: No Current Oral Anticoagulant The: Yes (H/O DVT) VS, I&O, 24H, Fishbone Vital Signs/I&O Vital Signs Date Time Temp Pulse Resp B/P (MAP) Pulse Ox O2 Delivery O2 Flow Rate FiO2 09/08/18 08:37 20 09/08/18 04:00 97.7 59 130/83 (99) 97 09/06/18 20:34 2.0 09/06/18 19:37 Room Air I&O- Last 24 Hours up to 6 AM 09/08/18 06:00 Intake Total 1180 ml Output Total 400 ml Balance 780 ml Laboratory Data 24H LABS Laboratory Tests 2 09/07/18 13:19: 09/08/18 06:33: Nucleated Red Blood Cells % (auto) 0.0, Anion Gap 5L, Glomerular Filtration Rate > 60.0, Blood Urea Nitrogen 23#H, Creatinine 1.00, Sodium Level 140, Potassium Level 4.0, Chloride Level 109H, Carbon Dioxide Level 26, Calcium Level 8.3L CBC/BMP Laboratory Tests 09/08/18 06:33 Red Blood Count 4.85, Mean Corpuscular Volume 85.2, Mean Corpuscular Hemoglobin 28.7, Mean Corpuscular Hemoglobin Concent 33.7, Red Cell Distribution Width 13.1, Calcium Level 8.3 L Esther Ojeda Sep 08, 2018 09:11
[2018-09-08 11:08] LABS: INR 1.46
[2018-09-08 12:00] VITALS: BP 130/84
--- NOTE | 2018-09-08 13:07 | IPNPDOC ---
Text Note Date of Service The patient was seen on 09/08/18. NOTE OBJECTIVE: Continues to have left arm and chest wall pain and swelling Had ve nogram yesterday shows chronically occluded left subclavian vein stent. Also chronic thrombus of the arm veins with good collaterals. As per Dr Gil no intervention needed and will not improve it. INR should be between 2.5 to 3.5., Elevate the arm, warm compress, motrin prn and compression sleeve. Records reviewed from [facility], [facility], [facility], [facility] SUBJECTIVE VITALS: As below. General exam: Alert and cooperative, A&O 3, NAD Eye exam: PERRLA, EOMI ENT: Atraumatic, normocephalic, mucus membranes moist, anicteric eyes. Neck: Supple, no JVD Cardiac: RRR, normal S1 & S2, no murmurs, rub or gallop Respiratory: CTAB, good air exchange, no wheezing, ronchi, or rales Abdomen: soft, nontender, nondistended Extremity: Left arm slightly swollen compared to right, ROM & strength intact fully, no Lower Extremity edema or calf tenderness. Warm with good capillary refill Neuro: no focal deficit Labs and Radiology: reviewed. ASSESSMENT and PLAN: 38-year-old male from local correctional facility is brought to ED for left arm and chest pain that was radiating to his neck and back. He states it started 2 days ago. He reported this felt similar to his previous episodes of when he had clots in his left arm. He reports he initially had UE clots in 2010 after he sustained an injury from a fall that led him to be having thoracic outlet syndrome for which a rib was surgically removed in 2012. HE also had a subclaviun vein stent placed in 2012 and a pacemaker placed in 2015. He states that the stent has clotted up multiple times. A report from [facility] from Mar 2018 showed that the subclavian vein stent was clotted .He reports history of multiple blood clots in the lower legs. He was admitted for possible clotting of left subclavian vein stent. Chronic Left subclavian vein stent thrombosis. had repeat venography on 09/07/18 . Finding unchanged from the venogram from [facility] in 2018. As per vascular no further intervention needed or can be done . He also has chronic thrombus of the veins of the arm with good collaterals. 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 Hx of A fib has leadless pacemaker in place last interrogated at [facility] on 12/31/17 H/o left Venous thoracic outlet syndrome s/p resection of left 1st and 2nd ribs and Subclaviun vein stent placement which is now chronically blocked for at least 1 year. Thyroid nodules no signs of thyroid hormonal abnormality. A-FIB/CHADSVASC A-FIB History Current/History of A-Fib/PAF?: Yes Current Oral Anticoagulant The: Yes VS,Fishbone, I+O VS, Fishbone, I+O Laboratory Tests 09/08/18 06:33 Red Blood Count 4.85, Mean Corpuscular Volume 85.2, Mean Corpuscular Hemoglobin 28.7, Mean Corpuscular Hemoglobin Concent 33.7, Red Cell Distribution Width 13.1, Calcium Level 8.3 L Vital Signs Date Time Temp Pulse Resp B/P (MAP) Pulse Ox O2 Delivery O2 Flow Rate FiO2 09/08/18 12:00 98.6 54 18 130/84 (99) 96 09/06/18 20:34 2.0 09/06/18 19:37 Room Air I&O- Last 24 Hours up to 6 AM 09/08/18 06:00 Intake Total 1180 ml Output Total 400 ml Balance 780 ml KATERYNA LUCIANO MD Sep 08, 2018 13:07
[2018-09-08] MEDS: WARFARIN SOD 7.5 MG TAB PO SCH (17:12)
[2018-09-08] MEDS: IBUPROFEN 800 MG TAB PO PRN (17:13)
[2018-09-08 20:00] VITALS: BP 137/70
[2018-09-09 06:00] VITALS: BP 114/60
[2018-09-09 07:10] LABS: HEMATOCRIT 39.7 % (42.0-52.0); HEMOGLOBIN 13.4 g/dl (13.5-17.5); MEAN CORPUSCULAR HEMOGLOBIN 28.5 pg (27.0-33.0); MEAN CORPUSCULAR HGB CONC 33.8 g/dl (32.0-36.5); MEAN CORPUSCULAR VOLUME 84.3 fl (80.0-96.0); PLATELET COUNT, AUTOMATED 197 10^3/uL (150-450); RED BLOOD COUNT 4.71 10^6/uL (4.30-6.10)
[2018-09-09 07:26] LABS: BLOOD UREA NITROGEN 23 MG/DL (7-18); CALCIUM LEVEL 8.2 MG/DL (8.5-10.1); CARBON DIOXIDE LEVEL 25 MEQ/L (21-32); CHLORIDE LEVEL 111 MEQ/L (98-107); CREATININE FOR GFR 0.98 MG/DL (0.70-1.30); GLOMERULAR FILTRATION RATE > 60.0 (>60); GLUCOSE, FASTING 95 MG/DL (70-100); POTASSIUM SERUM 3.7 MEQ/L (3.5-5.1); SODIUM LEVEL 141 MEQ/L (136-145)
[2018-09-09] MEDS: ENOXAPARIN 100MG/1ML SYRINGE (J1650) SC SCH ×2 (08:15→20:38)
[2018-09-09] MEDS: traMADol 50 MG TAB PO PRN ×2 (08:16→23:26)
--- NOTE | 2018-09-09 10:26 | IPNPDOC ---
Text Note Date of Service The patient was seen on 09/09/18. NOTE OBJECTIVE: Continues to have left arm and chest wall pain and swelling. He says he is trying to keep his arm up as much as he can . Says he was very hot so could not do the warm compress. SUBJECTIVE VITALS: As below. General exam: Alert and cooperative, A&O 3, NAD Eye exam: PERRLA, EOMI ENT: Atraumatic, normocephalic, mucus membranes moist, anicteric eyes. Neck: Supple, no JVD Cardiac: RRR, normal S1 & S2, no murmurs, rub or gallop Respiratory: CTAB, good air exchange, no wheezing, ronchi, or rales Abdomen: soft, nontender, nondistended Extremity: Left arm swollen and tender Neuro: no focal deficit Labs and Radiology: reviewed. ASSESSMENT and PLAN: 38-year-old male from local correctional facility is brought to ED for left arm and chest pain that was radiating to his neck and back. He states it started 2 days ago. He reported this felt similar to his previous episodes of when he had clots in his left arm. He reports he initially had UE clots in 2010 after he sustained an injury from a fall that led him to be having thoracic outlet syndrome for which a rib was surgically removed in 2012. HE also had a subclaviun vein stent placed in 2012 and a pacemaker placed in 2015. He states that the stent has clotted up multiple times. A report from [facility] from Mar 2018 showed that the subclavian vein stent was clotted .He reports history of multiple blood clots in the lower legs. He was admitted for possible clotting of left subclavian vein stent. Chronic Left subclavian vein stent thrombosis. had repeat venography on 09/07/18 . Finding unchanged from the venogram from [facility] in 2018. As per vascular no further intervention needed or can be done . He also has chronic thrombus of the veins of the arm with good collaterals. 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 restarted on coumadin Hx of A fib has leadless pacemaker in place last interrogated at [facility] on 12/31/17 H/o left Venous thoracic outlet syndrome s/p resection of left 1st and 2nd ribs and Subclaviun vein stent placement which is now chronically blocked for at least 1 year. Thyroid nodules no signs of thyroid hormonal abnormality. A-FIB/CHADSVASC A-FIB History Current/History of A-Fib/PAF?: Yes Current Oral Anticoagulant The: Yes VS,Fishbone, I+O VS, Fishbone, I+O Laboratory Tests 09/09/18 06:37 Red Blood Count 4.71, Mean Corpuscular Volume 84.3, Mean Corpuscular Hemoglobin 28.5, Mean Corpuscular Hemoglobin Concent 33.8, Red Cell Distribution Width 13 .0, Calcium Level 8.2 L Vital Signs Date Time Temp Pulse Resp B/P (MAP) Pulse Ox O2 Delivery O2 Flow Rate FiO2 09/09/18 08:16 18 09/09/18 06:00 97.9 65 114/60 (78) 96 09/06/18 20:34 2.0 09/06/18 19:37 Room Air I&O- Last 24 Hours up to 6 AM 09/09/18 06:00 Intake Total 3450 ml Output Total 0 ml Balance 3450 ml KATERYNA LUCIANO MD Sep 09, 2018 10:26
[2018-09-09 12:44] LABS: INR 1.13; PROTHROMBIN TIME 14.7 SECONDS (12.1-14.4)
[2018-09-09 12:45] LABS: PARTIAL THROMBOPLASTIN TIME 36.1 SECONDS (25.4-37.6)
[2018-09-09 14:00] VITALS: BP 118/73
[2018-09-09] MEDS: WARFARIN SOD 7.5 MG TAB PO SCH (17:15)
[2018-09-09] MEDS: IBUPROFEN 800 MG TAB PO PRN (17:16)
[2018-09-09 20:00] VITALS: BP 140/72
[2018-09-10 00:07] LABS: ANTI THROMBIN 3 ANTIGEN IMMUNO 82 % (72-124); ANTI THROMBIN 3 FUNCT ACTIVITY 95 % (75-135); PROTEIN C ANTIGEN 48 % (60-150); PROTEIN S ANTIGEN FREE 37 % (57-157); PROTEIN S ANTIGEN TOTAL 46 % (60-150)
[2018-09-10 06:00] VITALS: BP 126/66
--- NOTE | 2018-09-10 07:30 | IPNPDOC ---
Date Seen The patient was seen on 09/10/18. Progress Note OBJECTIVE: 30-year-old male with a pertinent past medical history of chronic left subclavian been some thrombosis, thoracic outlet syndrome, recurrent DVTs and chronic left axillary brachial vein DVTs recanalization who presented to the ER for left arm and left chest discomfort does radiate to his neck and back. The patient was seen and examined this morning with 2 officers at bedside. He continues to complain of left upper arm discomfort achy in sensation. He does not like to keep his arm elevated or if the warm compress throughout the day he was advised to. He understands that supportive therapy is necessary to help with his current complaints. His INR levels this morning decreased from 1.13 to 1.05. He states that normally for last 5 years he takes 21 mg of Coumadin daily and th at might play a role with his decreased INR. We have increased his 15 mg INR to 20 mg one-time dose today and recheck his INR tomorrow and readjust if needed. He has no other complaints at this time. He denies chest pain, shortness of breath, palpitation, nausea, vomiting, diarrhea, abdominal pain. He states that he is tolerating his meals well. No overnight events reported. SUBJECTIVE VITALS: As below. General exam: Alert and cooperative, A&O 3, NAD appropriately answering questions Eye exam: NADIA URENA ENT: Atraumatic, normocephalic, mucus membranes moist, anicteric eyes. Neck: Supple, no thyroid nodules palpated no JVD Cardiac: RRR, normal S1 & S2, no murmurs, rub or gallop Respiratory: CTAB, good air exchange, no wheezing, ronchi, or rales Abdomen: soft, nontender, nondistended Extremity: Left bicep slightly swollen and tender nonerythematous. Right arm: negative for swelling or tenderness Neuro: no focal deficit Labs and Radiology: reviewed. ASSESSMENT and PLAN: 38-year-old male from local correctional facility is brought to ED for left arm and chest pain that was radiating to his neck and back. He states it started 2 days ago. He reported this felt similar to his previous episodes of when he had clots in his left arm. He reports he initially had UE clots in 2010 after he sustained an injury from a fall that led him to be having thoracic outlet syndrome for which a rib was surgically removed in 2012. HE also had a subclaviun vein stent placed in 2012 and a pacemaker placed in 2015. He states that the stent has clotted up multiple times. A report from [facility] from Mar 2018 showed that the subclavian vein stent was clotted. He reports history of multiple blood clots in the lower legs. He was admitted for possible clotting of left subclavian vein stent. Chronic Left subclavian vein stent thrombosis. -repeat venography on 09/07/18, which is unchanged from the venogram from [facility] 2018. -Per vascular surgery, no further intervention needed or can be done - he has chronic thrombus of the veins of the arm with good collaterals. - Pain and swelling can be controlled with Motrin prn, elevation, warm compress and compression sleeve Recurrent DVTs and chronic left axillary and brachial vein dvt with recanalization both of left upper extremity and legs -c/w Lovenox in therapeutic dosage. -adjust coumadin to INR of 2.5 to 3.5. -takes 21 mg of Coumadin daily in the past, adjust inpatient dose accordingly Hx of A fib -leadless pacemaker in place -last interrogated at [facility] on 12/31/17 H/o left Venous thoracic outlet syndrome -s/p resection of left 1st and 2nd ribs and Subclaviun vein stent placement which is now chronically blocked for at least 1 year. Thyroid nodules -no signs of thyroid hormonal abnormality A-FIB/CHADSVASC A-FIB History Current/History of A-Fib/PAF?: Yes Current Oral Anticoagulant The: Yes (coumadin INR target 2.5-3.5) VS, I&O, 24H, Fishbone Vital Signs/I&O Vital Signs Date Time Temp Pulse Resp B/P (MAP) Pulse Ox O2 Delivery O2 Flow Rate FiO2 09/10/18 06:00 98.8 54 18 126/66 (86) 97 09/06/18 20:34 2.0 09/06/18 19:37 Room Air I&O- Last 24 Hours up to 6 AM 09/10/18 06:00 Intake Total 3600 ml Balance 3600 ml Laboratory Data 24H LABS Laboratory Tests 2 09/09/18 11:49: Prothrombin Time 14.7H, Prothromb Time International Ratio 1.13, Activated Partial Thromboplast Time 36.1 GME ATTESTATION GME ATTESTATION My faculty preceptor for this patient encounter was physically present during the encounter and was fully available. All aspects of the patient interview, examination, medical decision making process, and medical care plan development were reviewed and approved by the faculty preceptor. The faculty preceptor is aware and concurs with the plan as stated in the body of this note and will attest to such by his/her cosignature. ATTENDING NOTE I have reviewed the residents note and have personally examined the patient. I agree with the Residents physical examination and assessment and plan. JACOB CONNOLLY DO Sep 10, 2018 07:30 KATERYNA LUCIANO MD September 17, 2018 17:11
[2018-09-10 07:32] LABS: HEMATOCRIT 38.5 % (42.0-52.0); HEMOGLOBIN 12.9 g/dl (13.5-17.5); MEAN CORPUSCULAR HEMOGLOBIN 28.2 pg (27.0-33.0); MEAN CORPUSCULAR HGB CONC 33.5 g/dl (32.0-36.5); MEAN CORPUSCULAR VOLUME 84.2 fl (80.0-96.0); PLATELET COUNT, AUTOMATED 180 10^3/uL (150-450); RED BLOOD COUNT 4.57 10^6/uL (4.30-6.10); WHITE BLOOD COUNT 6.2 10^3/uL (4.0-10.0)
[2018-09-10 07:45] LABS: INR 1.05; PROTHROMBIN TIME 13.8 SECONDS (12.1-14.4)
[2018-09-10 07:50] LABS: BLOOD UREA NITROGEN 22 MG/DL (7-18); CALCIUM LEVEL 8.2 MG/DL (8.5-10.1); CARBON DIOXIDE LEVEL 26 MEQ/L (21-32); CHLORIDE LEVEL 111 MEQ/L (98-107); CREATININE FOR GFR 0.96 MG/DL (0.70-1.30); GLOMERULAR FILTRATION RATE > 60.0 (>60); GLUCOSE, FASTING 97 MG/DL (70-100); POTASSIUM SERUM 3.6 MEQ/L (3.5-5.1); SODIUM LEVEL 141 MEQ/L (136-145)
[2018-09-10] MEDS: ENOXAPARIN 100MG/1ML SYRINGE (J1650) SC SCH ×2 (08:32→21:21)
[2018-09-10] MEDS: IBUPROFEN 800 MG TAB PO PRN (08:32)
[2018-09-10] MEDS: traMADol 50 MG TAB PO PRN (12:50)
[2018-09-10 13:55] VITALS: BP 127/81
[2018-09-10] MEDS ORDERED: PERCOCET 5MG/325MG TAB PO ONE (15:30)
[2018-09-10] MEDS: WARFARIN SOD 7.5 MG TAB PO SCH (16:12)
[2018-09-10] MEDS ORDERED: WARFARIN SOD 5 MG TAB PO ONE (17:00)
[2018-09-10 20:00] VITALS: BP 104/61
[2018-09-10] MEDS: traMADol 50 MG TAB PO SCH (21:00)
[2018-09-11 05:00] VITALS: BP 118/73
[2018-09-11 07:13] LABS: HEMATOCRIT 39.7 % (42.0-52.0); HEMOGLOBIN 13.4 g/dl (13.5-17.5); MEAN CORPUSCULAR HEMOGLOBIN 28.6 pg (27.0-33.0); MEAN CORPUSCULAR HGB CONC 33.8 g/dl (32.0-36.5); MEAN CORPUSCULAR VOLUME 84.8 fl (80.0-96.0); PLATELET COUNT, AUTOMATED 183 10^3/uL (150-450); RED BLOOD COUNT 4.68 10^6/uL (4.30-6.10); WHITE BLOOD COUNT 6.5 10^3/uL (4.0-10.0)
[2018-09-11 07:26] LABS: INR 1.06; PROTHROMBIN TIME 13.9 SECONDS (12.1-14.4)
[2018-09-11 07:35] LABS: BLOOD UREA NITROGEN 19 MG/DL (7-18); CALCIUM LEVEL 7.9 MG/DL (8.5-10.1); CARBON DIOXIDE LEVEL 28 MEQ/L (21-32); CHLORIDE LEVEL 112 MEQ/L (98-107); CREATININE FOR GFR 0.96 MG/DL (0.70-1.30); GLOMERULAR FILTRATION RATE > 60.0 (>60); GLUCOSE, FASTING 88 MG/DL (70-100); POTASSIUM SERUM 3.9 MEQ/L (3.5-5.1); SODIUM LEVEL 141 MEQ/L (136-145)
[2018-09-11] MEDS: ENOXAPARIN 100MG/1ML SYRINGE (J1650) SC SCH ×2 (08:58→21:03)
[2018-09-11] MEDS: traMADol 50 MG TAB PO SCH ×3 (08:59→21:03)
--- NOTE | 2018-09-11 12:26 | IPNPDOC ---
Text Note Date of Service The patient was seen on 09/11/18. NOTE OBJECTIVE: Continues to have left arm and chest wall pain and swelling. He says he is trying to keep his arm up as much as he can . Says he was very hot so could not do the warm compress. SUBJECTIVE VITALS: As below. General exam: Alert and cooperative, A&O 3, NAD Eye exam: PERRLA, EOMI ENT: Atraumatic, normocephalic, mucus membranes moist, anicteric eyes. Neck: Supple, no JVD Cardiac: RRR, normal S1 & S2, no murmurs, rub or gallop Respiratory: CTAB, good air exchange, no wheezing, ronchi, or rales Abdomen: soft, nontender, nondistended Extremity: Left arm swollen and tender Neuro: no focal deficit Labs and Radiology: reviewed. ASSESSMENT and PLAN: 38-year-old male from local correctional facility is brought to ED for left arm and chest pain that was radiating to his neck and back. He states it started 2 days ago. He reported this felt similar to his previous episodes of when he had clots in his left arm. He reports he initially had UE clots in 2010 after he sustained an injury from a fall that led him to be having thoracic outlet syndrome for which a rib was surgically removed in 2012. HE also had a subclaviun vein stent placed in 2012 and a pacemaker placed in 2015. He states that the stent has clotted up multiple times. A report from [facility] from Mar 2018 showed that the subclavian vein stent was clotted .He reports history of multiple blood clots in the lower legs. He was admitted for possible clotting of left subclavian vein stent. Chronic Left subclavian vein stent thrombosis. had repeat venography on 09/07/18 . Finding unchanged from the venogram from [facility] in 2018. As per vascular no further intervention needed or can be done . He also has chronic thrombus of the veins of the arm with good collaterals. 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 restarted on coumadin. Confirmed dosage with correctional facility has been on 12 mg while in [facility] for the last 2 months. The patient says he was taking 21 mg before going to [facility] for several years. Hx of A fib has leadless pacemaker in place last interrogated at [facility] on 12/31/17 H/o left Venous thoracic outlet syndrome s/p resection of left 1st and 2nd ribs and Subclaviun vein stent placement which is now chronically blocked for at least 1 year. Thyroid nodules no signs of thyroid hormonal abnormality. DVT prophylaxis: is on coumadin and lovenox. VS,Fishbone, I+O VS, Fishbone, I+O Laboratory Tests 09/11/18 06:55 Red Blood Count 4.68, Mean Corpuscular Volume 84.8, Mean Corpuscular Hemoglobin 28.6, Mean Corpuscular Hemoglobin Concent 33.8, Red Cell Distribution Width 13.2, Calcium Level 7.9 L Vital Signs Date Time Temp Pulse Resp B/P (MAP) Pulse Ox O2 Delivery O2 Flow Rate FiO2 09/11/18 08:59 20 09/11/18 05:00 98.1 67 118/73 (88) 97 09/06/18 20:34 2.0 09/06/18 19:37 Room Air I&O- Last 24 Hours up to 6 AM 09/11/18 06:00 Intake Total 2675 ml Output Total 0 ml Balance 2675 ml KATERYNA LUCIANO MD Sep 11, 2018 12:26
[2018-09-11 14:00] VITALS: BP 135/74
[2018-09-11] MEDS: WARFARIN SOD 7.5 MG TAB PO SCH (16:03)
[2018-09-11] MEDS ORDERED: WARFARIN SOD 5 MG TAB PO SCH ×2 (17:00)
[2018-09-11 20:00] VITALS: BP 134/87
[2018-09-12 06:00] VITALS: BP 119/69
[2018-09-12 06:50] LABS: HEMATOCRIT 39.3 % (42.0-52.0); MEAN CORPUSCULAR HEMOGLOBIN 28.4 pg (27.0-33.0); MEAN CORPUSCULAR HGB CONC 33.1 g/dl (32.0-36.5); PLATELET COUNT, AUTOMATED 185 10^3/uL (150-450); RED BLOOD COUNT 4.57 10^6/uL (4.30-6.10); WHITE BLOOD COUNT 6.8 10^3/uL (4.0-10.0)
[2018-09-12 07:03] LABS: INR 1.24; PROTHROMBIN TIME 15.8 SECONDS (12.1-14.4)
[2018-09-12 07:24] LABS: BLOOD UREA NITROGEN 17 MG/DL (7-18); CALCIUM LEVEL 7.9 MG/DL (8.5-10.1); CARBON DIOXIDE LEVEL 27 MEQ/L (21-32); CHLORIDE LEVEL 111 MEQ/L (98-107); CREATININE FOR GFR 0.95 MG/DL (0.70-1.30); GLOMERULAR FILTRATION RATE > 60.0 (>60); GLUCOSE, FASTING 86 MG/DL (70-100); POTASSIUM SERUM 3.9 MEQ/L (3.5-5.1); SODIUM LEVEL 141 MEQ/L (136-145)
--- NOTE | 2018-09-12 08:41 | IPNPDOC ---
Text Note Date of Service The patient was seen on 09/12/18. NOTE OBJECTIVE: Continues to have left arm and chest wall pain and swelling. He says he is trying to keep his arm up as much as he can . Says he was very hot so could not do the warm compress. Complains of arm pain more than yesterday. will give one dose of percocet. His INR is still not rising much will increase coumadin to 25 mg daily. SUBJECTIVE VITALS: As below. General exam: Alert and cooperative, A&O 3, NAD Eye exam: PERRTOÑO TONGMI ENT: Atraumatic, normocephalic, mucus membranes moist, anicteric eyes. Neck: Supple, no JVD Cardiac: RRR, normal S1 & S2, no murmurs, rub or gallop Respiratory: CTAB, good air exchange, no wheezing, ronchi, or rales Abdomen: soft, nontender, nondistended Extremity: Left arm swollen and tender Neuro: no focal deficit Labs and Radiology: reviewed. ASSESSMENT and PLAN: 38-year-old male from local correctional facility is brought to ED for left arm and chest pain that was radiating to his neck and back. He states it started 2 days ago. He reported this felt similar to his previous episodes of when he had clots in his left arm. He reports he initially had UE clots in 2010 after he sustained an injury from a fall that led him to be having thoracic outlet syndrome for which a rib was surgically removed in 2012. HE also had a subclaviun vein stent placed in 2012 and a pacemaker placed in 2015. He states that the stent has clotted up multiple times. A report from [facility] from Mar 2018 showed that the subclavian vein stent was clotted .He reports history of multiple blood clots in the lower legs. He was admitted for possible clotting of left subclavian vein stent. Chronic Left subclavian vein stent thrombosis. had repeat venography on 09/07/18 . Finding unchanged from the venogram from [facility] in 2018. As per vascular no further intervention needed or can be done . He also has chronic thrombus of the veins of the arm with good collaterals. 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 restarted on coumadin. Confirmed dosage with correctional facility has been on 12 mg while in care home for the last 2 months. The patient says he was taking 21 mg before going to care home for several years. will increase to 25 mg today. Hx of A fib has leadless pacemaker in place last interrogated at [facility] on 12/31/17 H/o left Venous thoracic outlet syndrome s/p resection of left 1st and 2nd ribs and Subclaviun vein stent placement which is now chronically blocked for at least 1 year. Thyroid nodules no signs of thyroid hormonal abnormality. DVT prophylaxis: is on coumadin and lovenox. A-FIB/CHADSVASC A-FIB History Current/History of A-Fib/PAF?: Yes Current Oral Anticoagulant The: Yes VS,Fishbone, I+O VS, Fishbone, I+O Laboratory Tests 09/12/18 06:29 Red Blood Count 4.57, Mean Corpuscular Volume 86.0, Mean Corpuscular Hemoglobin 28.4, Mean Corpuscular Hemoglobin Concent 33.1, Red Cell Distribution Width 1 3.2, Calcium Level 7.9 L Vital Signs Date Time Temp Pulse Resp B/P (MAP) Pulse Ox O2 Delivery O2 Flow Rate FiO2 09/12/18 06:00 98.9 65 18 119/69 (86) 96 09/06/18 20:34 2.0 09/06/18 19:37 Room Air I&O- Last 24 Hours up to 6 AM 09/12/18 06:00 Intake Total 1320 ml Output Total 0 ml Balance 1320 ml KATERYNA LUCIANO MD Sep 12, 2018 08:41
[2018-09-12] MEDS ORDERED: PERCOCET 5MG/325MG TAB PO ONE ×2 (08:45→17:15)
[2018-09-12] MEDS: ENOXAPARIN 100MG/1ML SYRINGE (J1650) SC SCH ×2 (09:14→20:47)
[2018-09-12] MEDS: traMADol 50 MG TAB PO SCH ×3 (09:15→20:46)
[2018-09-12 14:00] VITALS: BP 127/66
[2018-09-12] MEDS: WARFARIN SOD 7.5 MG TAB PO SCH (16:46)
[2018-09-12] MEDS ORDERED: WARFARIN SOD 5 MG TAB PO SCH (17:00)
[2018-09-12 22:00] VITALS: BP 121/75
[2018-09-13 06:00] VITALS: BP 119/64
[2018-09-13 07:17] LABS: HEMATOCRIT 38.9 % (42.0-52.0); HEMOGLOBIN 13.2 g/dl (13.5-17.5); MEAN CORPUSCULAR HEMOGLOBIN 29.1 pg (27.0-33.0); MEAN CORPUSCULAR HGB CONC 33.9 g/dl (32.0-36.5); MEAN CORPUSCULAR VOLUME 85.7 fl (80.0-96.0); PLATELET COUNT, AUTOMATED 181 10^3/uL (150-450); RED BLOOD COUNT 4.54 10^6/uL (4.30-6.10); WHITE BLOOD COUNT 6.7 10^3/uL (4.0-10.0)
[2018-09-13 07:28] LABS: INR 1.7; PROTHROMBIN TIME 20.2 SECONDS (12.1-14.4)
[2018-09-13 07:40] LABS: BLOOD UREA NITROGEN 20 MG/DL (7-18); CALCIUM LEVEL 8.1 MG/DL (8.5-10.1); CARBON DIOXIDE LEVEL 28 MEQ/L (21-32); CHLORIDE LEVEL 111 MEQ/L (98-107); CREATININE FOR GFR 0.97 MG/DL (0.70-1.30); GLOMERULAR FILTRATION RATE > 60.0 (>60); GLUCOSE, FASTING 91 MG/DL (70-100); SODIUM LEVEL 142 MEQ/L (136-145)
[2018-09-13] MEDS: ENOXAPARIN 100MG/1ML SYRINGE (J1650) SC SCH (09:15)
[2018-09-13] MEDS: traMADol 50 MG TAB PO SCH (09:15)
[2018-09-13 10:04] LABS: DRVV SCREEN 78.5 SEC
[2018-09-13 10:12] LABS: PTT LUPUS TYPE ANTICOAG SCREEN 1.9 (0-1.2)
[2018-09-13 10:23] LABS: DRVV CONFIRM 66.2 SEC; LUPUS CONFIRM RATIO 1.7
[2018-09-13 10:24] LABS: NORMALIZED RATIO 1.12 (0.00-1.20)
--- NOTE | 2018-09-13 14:33 | DS.PDOC ---
Discharge Summary General Date of Admission Sep 09, 2018 at 06:44 Date of Discharge 09/13/18 Attending Physician: JODIE CARRENO MD Specialist/Consultants Involve: Chidi Gil MD Discharge Summary PROCEDURES PERFORMED DURING STAY: [None]. ADMITTING DIAGNOSES: 1. Left Subclavian Stent thrombosis in setting of recurrent thrombus formation 2. History of recurrent thrombus formation 3. Atypical Chest pain 4. History of A-fib DISCHARGE DIAGNOSES: 1. Chronic Left subclavian vein stent thrombosis 2. 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 History of a-fib 4. History of Venous thoracic outlet syndrome COMPLICATIONS/CHIEF COMPLAINT: Left Arm Pain. HISTORY OF PRESENT ILLNESS: Patient is a 38 year male currently incarcerated with a past medical history significant for thoracic outlet syndrome, recurrent VTE, s/p left subclavian stent on chronic anticoagulation, and atrial fibrillation who presented to the [facility] ER for complaint of left arm and chest pain that radiated to the neck and back. He had stated that the pain started the day previously while he was watching TV. He had noted that this had felt si milar to when he had previous clots in his arm. He noted that he developed clots in 2010 after he sustained an injury from a fall that led to him developing thoracic outlet syndrome after a rib was surgically removed. The patient has had a stent in his left subclavian vein since 2012 which has clotted multiple times. He also admitted to a history of lower extremity DVTs. In the ER he had stated that he has been on coumadin however, before his incarceration he was on a much higher dose. Since being incarcerated, he has been on 12 mg daily. His INR on admission to the ER was 1.85 and was found to be nontherapeutic. He received doppler imaging which was negative for any clot however, there was questionable thrombus with suboptimal visulization of the stent on CTA. The ER had spoken with Dr. Gil of Vascular Surgery who recommended that the patient be admitted and started on full dose Lovenox. HOSPITAL COURSE: Once admitted to hospitalist service, the patient was continued on full dose Lovenox. His coumadin was titrated for an INR of 2.5-3.5 per recommendations of Vascular Surgery. The patient was to remain on full dose lovenox until his INR was therapeutic. Over the course of his hospital stay his INR slowly increased. Patient had continued pain and was maintained on Ultram. However, he noted that his pain worsened. He was given Percocet 2 tabs po once which was able to control his pain. The patient was felt fit to discharge with plan to continue lovenox treatment and coumadin until INR is within 2.5-3.5. DISCHARGE MEDICATIONS: Please see below. ALLERGIES: Please see below. PHYSICAL EXAMINATION ON DISCHARGE: VITAL SIGNS: Please see below. GENERAL: Awake, alert, and oriented. He appears in no acute distress. He is lying in bed watching TV HEENT: Atraumatic normocephalic. Eyes are nonicteric. Trachea is midline. Mucous membranes are pink and moist NECK: No palpable cervical lymphadenopathy CARDIOVASCULAR EXAMINATION: Normal S1, S2. Regular rate and rhythm. No clicks, rubs, or murmurs RESPIRATORY EXAMINATION: Clear vesicular breath sounds bilaterally. Good re spiratory effort. No wheezes, rhonci or rales ABDOMINAL EXAMINATION: Soft, nondistended. Nontender to palpation in all 4 quadrants. No rebound tenderness or guarding. Positive bowel sounds EXTREMITIES: No lower extremity edema. Left arm swollen and slightly tender to palpation. No erythema. SKIN: No rashes or lesions NEUROLOGICAL EXAMINATION: No focal neurological deficits PSYCHIATRIC EXAMINATION: Mood and affect appear appropriate LABORATORY DATA: Please see below. IMAGING: Portable chest x-ray: Single view: History: Chest pain. No comparison study. Findings: EKG monitoring electrodes overlie the chest. There is a disc shaped metallic opacity superimposed on the heart which could be a aortic valve replacement. There is a vascular stent in the region of the subclavian artery or vein on the left. The lungs are well inflated and clear. Pleural angles are sharp. Heart size is normal. Impression: Metallic density superimposed on the heart may be a valve replacement or other intracardiac device. Vascular stent in the left subclavian region. Otherwise no acute disease. Electronically Signed by Spencer Oswald MD 09/07/2018 09:25 A EXAM: US Duplex Left Upper Extremity Veins, Limited EXAM DATE/TIME: 09/06/2018 9:40 PM CLINICAL HISTORY: 38 years old, male; Pain; Arn, upper; Left; Additional info: RO dvt TECHNIQUE: Imaging protocol: Real-time Duplex ultrasound of the Left Upper Extremity with 2-D sauceda scale, color Doppler flow and spectral waveform analysis. Limited exam focused on the left upper extremity veins. COMPARISON: No relevant prior studies available. FINDINGS: Left deep veins: Internal jugular, subclavian, axillary and brachial veins patent without thrombus. Normal compressibility, augmentation response and/or Doppler waveforms. Left superficial veins: Visualized cephalic and basilic veins patent without thrombus. Soft tissues: Unremarkable. IMPRESSION: No sonographic evidence of deep vein thrombosis. Electronically signed by: Frank Hurd On 09/06/2018 22:27:02 PM EXAM: CTA Left Upper Extremity With Contrast EXAM DATE/TIME: 09/06/2018 9:58 PM CLINICAL HISTORY: 38 years old, male; Condition or disease; Other: HX of clots; Prior surgery; Additional info: Left arm, assess stent integrity - HX of clot TECHNIQUE: Imaging protocol: Axial CTA of the Left upper extremity with intravenous contrast material, including non-contrast images if performed. Coronal and sagittal reformatted images were created and reviewed. 3D rendering: MIP reconstructed images were created and reviewed. Radiation optimization: All CT scans at this facility use at least one of these dose optimization techniques: automated exposure control; mA and/or kV adjustment per patient size (includes targeted exams where dose is matched to clinical indication); or iterative reconstruction. Contrast material: ISOVUE 370; Contrast volume: 100 ml; Contrast route: IV; COMPARISON: No relevant prior studies available. FINDINGS: Left subclavian artery: No acute findings. No occlusion or significant stenosis. Left axillary artery: No acute findings. No occlusion or significant stenosis. Left brachial artery: No acute findings. No occlusion or significant stenosis. Left Radial artery: Grossly patent. No definite occlusion or significant stenosis. Left ulnar artery: Grossly patent. No definite occlusion or significant stenosis. Upper Extremity Veins: Suboptimal evaluation of the left subclavian vein stent due to the phase of contrast-enhancement. Subcutaneous varices about the shoulder and arm. Bones/joints: No acute fracture. No dislocation. Soft tissues: Grossly unremarkable. No fluid collection or soft tissue mass. IMPRESSION: 1. Patent left upper extremity arterial system. 2. Suboptimal evaluation of the left subclavian vein stent due to the phase of contrast-enhancement. 3. Additional findings, as above. Electronically signed by: rFank Hurd On 09/06/2018 22:34:25 PM PROGNOSIS: GOOD ACTIVITY: [As tolerated]. DIET: As Tolerated DISCHARGE PLAN: Patient is to be discharged back to correctional facility. He is to continue Lovenox 100mg BID for 2 weeks. He is to continue taking Coumadin 25mg daily and titrate to an INR of 2.5-3.5. He is to take Percocet 5/325 q8H as needed for pain. Patient is to continue with [facility] Facility PCP for ongoing management of his Coumadin and pain control. DISCHARGE INSTRUCTIONS: 1. Continue Lovenox with Coumadin until INR therapeutic at 2.5-3.5 2. Continue with Correctional Facility PCP for ongoing management of Coumadin and Pain management DISCHARGE CONDITION: [Stable]. TIME SPENT ON DISCHARGE: Greater than 40 minutes. Vital Signs/I&Os Vital Signs Date Time Temp Pulse Resp B/P (MAP) Pulse Ox O2 Delivery O2 Flow Rate FiO2 09/13/18 09:15 16 09/13/18 06:00 98.6 54 119/64 (82) 96 I&O- Last 24 Hours up to 6 AM 09/13/18 06:00 Intake Total 2060 ml Balance 2060 ml Laboratory Data Labs 24H Laboratory Tests 2 09/13/18 07:02: Nucleated Red Blood Cells % (auto) 0.0, Prothrombin Time 20.2H, Prothromb Time International Ratio 1.70, Anion Gap 3L, Glomerular Filtration Rate > 60.0, Blood Urea Nitrogen 20H, Creatinine 0.97, Sodium Level 142, Potassium Level 4.0, Chloride Level 111H, Carbon Dioxide Level 28, Calcium Level 8.1L CBC/BMP Laboratory Tests 09/13/18 07:02 Red Blood Count 4.54, Mean Corpuscular Volume 85.7, Mean Corpuscular Hemoglobin 29.1, Mean Corpuscular Hemoglobin Concent 33.9, Red Cell Distribution Width 13.2, Calcium Level 8.1 L Allergies Coded Allergies: No Known Allergies (Unverified , 09/06/18) GME ATTESTATION GME ATTESTATION My faculty preceptor for this patient encounter was physically present during the encounter and was fully available. All aspects of the patient interview, exa mination, medical decision making process, and medical care plan development were reviewed and approved by the faculty preceptor. The faculty preceptor is aware and concurs with the plan as stated in the body of this note and will attest to such by his/her cosignature. ANGELIKA ZHOU DO Sep 13, 2018 14:33
[2018-09-14 00:06] LABS: ANCA-ATYPICAL <1:20 titer (Neg:<1:20); ANTINUCLEAR ANTIBODIES DIRECT Negative (Negative); CARDIOLIPIN IGA ANTIBODY <9 APL U/mL (0-11); CARDIOLIPIN IGG ANTIBODY <9 GPL U/mL (0-14); CARDIOLIPIN IGM ANTIBODY 10 MPL U/mL (0-12); CYTOPLASMIC NEUTROP AB ANCA-C <1:20 titer (Neg:<1:20); HOMOCYST(E)INE SERUM 7.4 umol/L (0.0-15.0); PERINUCLEAR AB ANCA-P <1:20 titer (Neg:<1:20); SJOGREN'S ANTI SS-A <0.2 AI (0.0-0.9); SJOGREN'S ANTI SS-B <0.2 AI (0.0-0.9)
--- NOTE | 2018-09-21 10:51 | REPIR ---
DATE OF PROCEDURE: 09/07/2018 ATTENDING SURGEON: Dr. Asael Gil EMBRYOLOGY PROFESSOR: PREOPERATIVE DIAGNOSES: 1. Thoracic outlet syndrome. 2. Left upper extremity swelling, which is chronic. POSTOPERATIVE DIAGNOSES 1. Thoracic outlet syndrome. 2. Left upper extremity swelling, which is chronic. PROCEDURE: Left upper extremity venogram. INDICATION: The patient is a 38-year-old male who has previously undergone thoracic outlet first rib resection and angioplasty and stenting of his left subclavian vein. The stent has been thrombosed for quite some time. The patient has chronic swelling in the left upper extremity as well as well developed collaterals. The patient comes in presenting with new chest pain and left upper extremity swelling and will undergo a venogram with possible angioplasty, stent and/or atherectomy. Risks, benefits and alternative treatment options were discussed with the patient. ANESTHESIA: Local. ESTIMATED BLOOD LOSS: Minimal. IV FLUIDS: 50 mL. COMPLICATIONS: None. DRAINS: None. SPECIMENS: None. IMPLANTS: None. PROCEDURE: The patient was taken to the angiography suite, placed supine on the angiography room table, and the left upper extremity was prepped and draped in a standard surgical fashion. Ultrasound was used to guide cannulation of the left basilic vein. A catheter was placed and a venogram was placed. This showed no acute deep vein thrombosis (DVT) and a chronic occluded subclavian vein, which had a stented was noted. There was good collateral flow reconstituting the innominate vein. The catheter was removed. Manual compression was applied at the puncture site for hemostasis. Dressings were then applied. The patient tolerated the procedure well. All instrument, sponge and needle counts were correct at the end the case. There were no complications. Dr. Gil was present for and directed the entire case. The patient was transferred to the holding area and subsequently to the floor in stable condition.
== END 2018-09-13 13:50 | DRG 862 ==
LOC: M ED 19:18 → EDBD 19:18 → M ED INP 22:39 → M MS4PR 09-07 00:40 → OBSVTOIN 09-09 06:44 → INTOOBSV 09-09 06:44
PROVIDERS: ADMIT Internal Medicine; ATTEND Internal Medicine
PROC: B51VYZZ Fluoroscopy of Other Veins using Other Contrast (ICD-10-PCS; principal; 2018-09-07)
DX: T82.868D Thrombosis due to vascular prosthetic devices, implants and grafts, subsequent encounter (principal); I82.B22 Chronic embolism and thrombosis of left subclavian vein; I48.91 Unspecified atrial fibrillation; Z79.01 Long term (current) use of anticoagulants; Z86.718 Personal history of other venous thrombosis and embolism; E04.1 Nontoxic single thyroid nodule; Z95.0 Presence of cardiac pacemaker